=== PATIENT | female | born 1995 | race Caucasian/White ===

== ENCOUNTER 2018-02-21 05:02 | Emergency (ER) | payer OTHER ==
[2018-02-21] MEDS ORDERED: LOPERAMIDE HCL 2 MG CAPSULE PO ONE (05:27)
[2018-02-21] MEDS ORDERED: ONDANSETRON 4 MG TAB.RAPDIS PO ONE (05:27)
[2018-02-21] MEDS ORDERED: CIPROFLOXACIN HCL 500 MG TABLET PO ONE (05:32)
--- NOTE | 2018-02-21 05:34 | ER Document Report ---
HPI - HPI Patient complains to provider of: diarrhea Pain Level: 2 Context: Patient is a 22-year-old female that comes to the emergency department for chief complaint of diarrhea, nausea, some abdominal cramps. She denies any particular abdominal pain at this time. She states she has had 8-10 loose stools today. She reports nausea but denies vomiting. She denies measuring a fever but she has felt chills and sweats. No obvious sick contacts, no out of country travel, no recent antibiotics. She states she has actually been cooking using raw chicken several days ago. She denies any surgeries, daily medications, or medical history. She is currently on her menstrual cycle. Past Medical History - General Information source: Patient - Social History Smoking Status: Never Smoker Frequency of alcohol use: None Drug Abuse: None Lives with: Family Family History: Reviewed & Not Pertinent - Medical History Medical History: Negative Surgical Hx: Negative - Immunizations Immunizations up to date: Yes Hx Diphtheria, Pertussis, Tetanus Vaccination: Yes Vertical Provider Document - CONSTITUTIONAL General Appearance: WD/WN, No Apparent Distress - INFECTION CONTROL TRAVEL OUTSIDE OF THE [place] IN LAST 30 DAYS: No - HEENT HEENT: Atraumatic, Normocephalic - NECK Neck: Normal Inspection - RESPIRATORY Respiratory: Breath Sounds Normal, No Respiratory Distress - CARDIOVASCULAR Cardiovascular: Regular Rate, Regular Rhythm - GI/ABDOMEN Gastrointestinal: Abdomen Soft, Abdomen Non-Tender. negative: Abdomen Tender, Abdominal Guarding - BACK Back: Normal Inspection - MUSCULOSKELETAL/EXTREMETIES Musculoskeletal/Extremeties: MAEW, FROM, Non-Tender - NEURO Level of Consciousness: Awake, Alert, Appropriate - DERM Integumentary: Warm, Dry, No Rash Course - Re-evaluation Re-evalutation: Patient has a soft benign abdomen. She is not tachycardic on my exam. Moist mucous membranes, patient states she is drinking a lot of fluids and staying hydrated. No heavy bleeding. Low suspicion of acute abdomen based on her reported symptoms. Possibly inflammatory diarrhea, suspected infectious. Because of multiple stools with starting to be bloody/pink stools, exposure to raw chicken, discussed options with patient. After discussion decision was made to send stool sample, patient easily provided this, placing on Cipro for coverage for Salmonella, providing with symptom management, provided with work release, discussed follow-up, expectations, return precautions. Patient states satisfaction and agreement with with plan. - Vital Signs Vital signs: Temp Pulse Resp BP Pulse Ox 98.6 F 102 H 18 108/74 98 02/21/18 05:06 02/21/18 05:06 02/21/18 05:06 02/21/18 05:06 02/21/18 05:06 Discharge - Discharge Clinical Impression: Nausea Diarrhea Qualifiers: Diarrhea type: presumed infectious Qualified Code(s): R19.7 - Diarrhea, unspecified Condition: Stable Disposition: HOME, SELF-CARE Additional Instructions: We are covering you for possible Salmonella infection as a cause of your diarrhea. We have a stool culture growing in the lab. You can take Zofran for nausea, you can take Imodium for diarrhea, avoid drinking milk while taking the antibiotic. Avoid intense physical exercise while taking the antibiotic as this can slightly increase risk of injury. Return for any concerning or worsening symptoms including passing out, severe abdominal pain, or any other concerning or worsening symptoms. Prescriptions: Ciprofloxacin HCl [Cipro 500 mg Tablet] 500 mg PO BID #10 tablet Loperamide HCl [Imodium 2 mg Capsule] 2 mg PO ASDIR PRN #20 cap PRN Reason: Ondansetron [Zofran Odt 4 mg Tablet] 1 - 2 tab PO Q4H PRN #15 tab.rapdis PRN Reason: For Nausea/Vomiting Forms: Return to Work
[2018-02-21 05:51] VITALS: BP 119/72
== END 2018-02-21 05:51 | disposition home or self-care (01) ==
LOC: ER 05:02
DX: R11.0 Nausea (principal); R19.7 Diarrhea, unspecified; R10.84 Generalized abdominal pain
CPT/HCPCS: 99283; 87045; 87205; S0119